=== PATIENT | female | born 1995 | race Caucasian/White ===

== ENCOUNTER → 2019-08-31 | Outpatient (REF) | payer BC ==
[2019-08-31 18:57] LABS: HEMATOCRIT 35.6 % (36.0-47.0); HEMOGLOBIN 11.4 g/dl (12.0-15.5); MEAN CORPUSCULAR VOLUME 84.2 fl (80.0-96.0); PLATELET COUNT, AUTOMATED 180 10^3/uL (150-450); RED BLOOD COUNT 4.23 10^6/uL (4.00-5.40); WHITE BLOOD COUNT 11.3 10^3/uL (4.0-10.0)
== END ==
LOC: M PLALAB 15:16
PROVIDERS: ATTEND Advanced Practice Midwife
DX: Z34.03 Encounter for supervision of normal first pregnancy, third trimester (principal)

== ENCOUNTER 2019-11-09 10:30 | Inpatient (IN) | payer BC, MEDICAID ==
[2019-11-10] MEDS ORDERED: PROMETHAZINE INJ 25 MG/ML VIAL (J2550) As Ordered ONE (00:45)
[2019-11-10] MEDS ORDERED: BUTORPHANOL 2 MG/ML INJ (J0595) As Ordered ONE (00:46)
[2019-11-10] MEDS ORDERED: FENTANYL 2MCG/ML ROPIVACAINE 0.2% IN 0.9% NACL 100ML IVBAG As Ordered ONE ×2 (03:40→12:53)
[2019-11-10] MEDS ORDERED: FENTANYL 2MCG/ML ROPIVACAINE 0.2% IN 0.9% NACL 100ML IVBAG ONE ×2 (03:40→12:53)
[2019-11-10] MEDS ORDERED: miSOPROStol 50 MCG 1/2 TAB (S0191) ONE (05:15)
[2019-11-10] MEDS ORDERED: ePHEDrine SULFATE 25 MG/5 ML(5MG/ML) SYRINGE ONE (05:15)
[2019-11-10] MEDS ORDERED: ePHEDrine SULFATE 25 MG/5 ML(5MG/ML) SYRINGE As Ordered ONE (05:15)
[2019-11-10] MEDS ORDERED: OXYTOCIN 30 UNITS IN 0.9% NaCl 500ML IV BAG (J2590) ONE ×2 (05:15→19:36)
[2019-11-10] MEDS ORDERED: miSOPROStol 50 MCG 1/2 TAB (S0191) As Ordered ONE (05:55)
[2019-11-10] MEDS ORDERED: OXYTOCIN 30 UNITS IN 0.9% NaCl 500ML IV BAG (J2590) As Ordered ONE ×2 (08:37→19:47)
[2019-11-10] MEDS ORDERED: BUTORPHANOL 2 MG/ML INJ (J0595) ONE (12:45)
[2019-11-10] MEDS ORDERED: PROMETHAZINE INJ 25 MG/ML VIAL (J2550) ONE (12:45)
[2019-11-10] MEDS ORDERED: ONDANSETRON 4MG/2ML VIAL ONE (19:36)
[2019-11-10] MEDS ORDERED: METHYLERGONOVINE MALEATE 0.2 MG/ML VIAL (J2210) ONE (19:36)
[2019-11-10] MEDS ORDERED: ACETAMINOPHEN 500 MG TAB ONE (19:36)
[2019-11-10] MEDS ORDERED: ONDANSETRON 4MG/2ML VIAL As Ordered ONE (19:36)
[2019-11-10] MEDS ORDERED: ACETAMINOPHEN 500 MG TAB As Ordered ONE ×2 (21:50→21:51)
[2019-11-10] MEDS ORDERED: METHYLERGONOVINE MALEATE 0.2 MG/ML VIAL (J2210) As Ordered ONE (22:26)
[2019-11-11] MEDS ORDERED: ACETAMINOPHEN 500 MG TAB As Ordered ONE (22:47)
[2019-11-11] MEDS ORDERED: ACETAMINOPHEN 500 MG TAB ONE (22:47)
[2019-11-12] MEDS ORDERED: ACETAMINOPHEN 500 MG TAB ONE (07:52)
[2019-11-12] MEDS ORDERED: ACETAMINOPHEN 500 MG TAB As Ordered ONE (07:52)
[2019-11-12] MEDS ORDERED: PRENATAL VITAMINS CHEWABLE TABLET As Ordered ONE (07:53)
[2019-12-31 15:14] LABS: HEMATOCRIT 31.8 % (36.0-47.0); HEMOGLOBIN 10.3 g/dl (12.0-15.5); MEAN CORPUSCULAR HEMOGLOBIN 26.6 pg (27.0-33.0); MEAN CORPUSCULAR HGB CONC 32.4 g/dl (32.0-36.5); MEAN CORPUSCULAR VOLUME 82.2 fl (80.0-96.0); PLATELET COUNT, AUTOMATED 179 10^3/uL (150-450); RED BLOOD COUNT 3.87 10^6/uL (4.00-5.40); WHITE BLOOD COUNT 15.8 10^3/uL (4.0-10.0)
[2020-02-01 09:51] LABS: HIV 1&2 SCREEN CENTAUR NEGATIVE (NEGATIVE)
== END 2019-11-12 10:37 | disposition home or self-care (01) | DRG 560 ==
LOC: M LDI 10:30 → UNDODISIN 11-12 10:37
PROVIDERS: ADMIT Advanced Practice Midwife; ATTEND Advanced Practice Midwife
PROC: 3E033VJ Introduction of Other Hormone into Peripheral Vein, Percutaneous Approach (ICD-10-PCS; 2019-11-09)
PROC: 10E0XZZ Delivery of Products of Conception, External Approach (ICD-10-PCS; principal; 2019-11-10)
PROC: 0HQ9XZZ Repair Perineum Skin, External Approach (ICD-10-PCS; 2019-11-10)
DX: O48.0 Post-term pregnancy (principal); O77.0 Labor and delivery complicated by meconium in amniotic fluid; Z37.0 Single live birth; Z3A.40 40 weeks gestation of pregnancy; O70.0 First degree perineal laceration during delivery

== ENCOUNTER → 2020-04-27 | Outpatient (REF) | payer OTHER | LOC: M PLALAB 11:10 | PROVIDERS: ATTEND Advanced Practice Midwife | DX: Z12.4 Encounter for screening for malignant neoplasm of cervix (principal) ==

== ENCOUNTER → 2021-04-01 | Outpatient (REF) | payer OTHER ==
[2021-04-01 15:53] LABS: GC DNA AMPLIFICATION NEGATIVE (NEGATIVE)
== END ==
LOC: M SFHCWAGY 13:20
PROVIDERS: ATTEND Advanced Practice Midwife
DX: R10.2 Pelvic and perineal pain (principal); F52.6 Dyspareunia not due to a substance or known physiological condition; N92.1 Excessive and frequent menstruation with irregular cycle

== ENCOUNTER → 2021-04-16 | Outpatient (CLI) | payer OTHER ==
--- NOTE | 2021-04-16 09:18 | REP ---
INDICATION: PELVIC PAIN COMPARISON: None. TECHNIQUE: Transabdominal pelvic ultrasound followed by transvaginal examination for better evaluation of the endometrium and adnexa with color Doppler evaluation of the ovaries. FINDINGS: Bladder is unremarkable and measures 5.4 x 2.3 x 5.5. Normal anteverted uterus measures 6.7 x 4.2 x 3.6 cm. The endometrial complex measures 8.1 mm thickness. Small incidental calcification identified in the cervical region. Bilateral ovaries are normal in appearance and vascularity without evidence for torsion. Right ovary measures 2.4 x 1.7 x 2.7 cm; R I = 0.68. Left ovary measures 3.5 x 2.2 x 3.9 cm and includes 3.0 cm presumed physiologic cyst; R I = 0.76. No pelvic fluid. IMPRESSION: 1. Presumed physiologic left ovarian cyst. If the patient remains symptomatic consider re-evaluation in 4-6 weeks to evaluate for resolution. <Electronically signed by Marin Jones > 04/16/21 0914
== END ==
LOC: M WHC 07:59
PROVIDERS: ATTEND Advanced Practice Midwife
DX: R10.2 Pelvic and perineal pain (principal); F52.6 Dyspareunia not due to a substance or known physiological condition; N83.202 Unspecified ovarian cyst, left side; N85.4 Malposition of uterus

== ENCOUNTER → 2022-09-04 | Outpatient (REF) | LOC: M EMP 10:21 | PROVIDERS: ATTEND Family Medicine | DX: Z11.52 Encounter for screening for COVID-19 (principal) ==

== ENCOUNTER → 2023-02-11 | Outpatient (CLI) | payer OTHER ==
[2023-02-11 19:00] LABS: HEPATITIS B SURFACE ANTIBODY NEGATIVE (POSITIVE)
[2023-02-11 19:25] LABS: HIV 1&2 SCREEN NEGATIVE (NEGATIVE)
[2023-02-13 14:08] LABS: HEPATITIS C QUANTITATION HCV Not Detected IU/mL (.); HSV TYPE I IgG SPECIFIC <0.91 index (0.00-0.90)
== END ==
LOC: M LAB 16:42
PROVIDERS: ATTEND Obstetrics & Gynecology
DX: Z11.3 Encounter for screening for infections with a predominantly sexual mode of transmission (principal)

== ENCOUNTER → 2023-06-01 | Outpatient (REF) | payer OTHER ==
[2023-06-01 11:47] LABS: BASO # 0.1 10^3/uL (0.0-0.2); BASO % 0.8 % (0.0-1.0); EOS # 0.5 10^3/uL (0.0-0.5); EOS % 7.6 % (0.0-3.0); HEMATOCRIT 41.3 % (36.0-47.0); HEMOGLOBIN 13.2 g/dl (12.0-15.5); LYMPH # 2.3 10^3/uL (1.5-5.0); LYMPH % 36.3 % (24.0-44.0); MEAN CORPUSCULAR HEMOGLOBIN 25.8 pg (27.0-33.0); MEAN CORPUSCULAR VOLUME 80.8 fl (80.0-96.0); MONO # 0.5 10^3/uL (0.0-0.8); MONO % 7.8 % (2.0-8.0); NEUTROPHILS % 47.3 % (36.0-66.0); PLATELET COUNT, AUTOMATED 262 10^3/uL (150-450); RED BLOOD COUNT 5.11 10^6/uL (4.00-5.40); WHITE BLOOD COUNT 6.3 10^3/uL (4.0-10.0)
[2023-06-01 12:18] LABS: ALBUMIN 3.9 G/DL (3.2-5.2); ALKALINE PHOSPHATASE 44 U/L (46-116); ALT/SGPT 14 U/L (7.0-40); AST/SGOT 9 U/L (<34); BILIRUBIN,TOTAL 0.9 MG/DL (0.3-1.2); BLOOD UREA NITROGEN 11 MG/DL (9-23); CALCIUM LEVEL 8.7 MG/DL (8.5-10.1); CARBON DIOXIDE LEVEL 27 MMOL/L (20-31); CHLORIDE LEVEL 111 MMOL/L (98-107); CHOLESTEROL LEVEL 142 MG/DL (<200); CHOLESTEROL RISK RATIO 2.84 (<5); CPK CREATINE PHOSPHOKINASE 143 U/L (34-145); CREATININE FOR GFR 0.67 MG/DL (0.55-1.30); FOLATE 17.7 NG/ML (>5.4); GLOMERULAR FILTRATION RATE > 60.0 (>60); GLUCOSE, FASTING 90 MG/DL (60-100); HDL CHOLESTEROL 49.9 MG/DL (>40); LDL CHOLESTEROL 70.1 MG/DL (<100); MAGNESIUM LEVEL 2.1 MG/DL (1.8-2.4); NON-HDL-C 92.1 MG/DL; POTASSIUM SERUM 4.7 MMOL/L (3.5-5.1); SODIUM LEVEL 141 MMOL/L (136-145); TOTAL 25(OH) VITAMIN D 24.8 NG/ML (20.0-100.0); TOTAL PROTEIN 6.7 G/DL (5.7-8.2); TRIGLYCERIDES LEVEL 110 MG/DL (<150)
[2023-06-01 12:19] LABS: THYROID STIMULATING HORMONE 1.466 uIU/ML (0.55-4.78); VITAMIN B12 LEVEL 311 PG/ML (211-911)
[2023-06-01 12:44] LABS: HIV 1&2 SCREEN NEGATIVE (NEGATIVE)
[2023-06-01 12:51] LABS: HEPATITIS C VIRUS ABY INDEX < 0.02 INDEX (<0.8)
== END ==
LOC: M LAB REF 11:08
PROVIDERS: ATTEND Physician Assistant
DX: R25.3 Fasciculation (principal); E66.9 Obesity, unspecified; Z11.9 Encounter for screening for infectious and parasitic diseases, unspecified; R53.83 Other fatigue; E55.9 Vitamin D deficiency, unspecified

== ENCOUNTER → 2023-10-21 | Outpatient (REF) | payer OTHER | LOC: M LAB REF 17:12 | PROVIDERS: ATTEND Physician Assistant | DX: Z02.1 Encounter for pre-employment examination (principal) ==

== ENCOUNTER 2024-06-02 09:39 | Emergency (ER) | payer OTHER ==
[~2024-06-02] VITALS: Ht 157.5 cm; Wt 76.2 kg
[2024-06-02 10:50] LABS: BASO # 0.1 10^3/uL (0.0-0.2); BASO % 0.3 % (0.0-1.0); EOS % 0.2 % (0.0-3.0); HEMATOCRIT 41.5 % (36.0-47.0); HEMOGLOBIN 13.6 g/dl (12.0-15.5); LYMPH # 1.8 10^3/uL (1.5-5.0); LYMPH % 10.4 % (24.0-44.0); MEAN CORPUSCULAR HGB CONC 32.8 g/dl (32.0-36.5); MEAN CORPUSCULAR VOLUME 79.2 fl (80.0-96.0); MONO # 1.1 10^3/uL (0.0-0.8); MONO % 6.1 % (2.0-8.0); NEUTROPHILS # 14.4 10^3/uL (1.5-8.5); NEUTROPHILS % 82.6 % (36.0-66.0); PLATELET COUNT, AUTOMATED 259 10^3/uL (150-450); RED BLOOD COUNT 5.24 10^6/uL (4.00-5.40); WHITE BLOOD COUNT 17.5 10^3/uL (4.0-10.0)
[2024-06-02 11:10] LABS: LIPASE 28 U/L (12-53)
[2024-06-02 11:12] LABS: HCG, SERUM QUALITATIVE NEGATIVE (NEGATIVE)
[2024-06-02 11:13] LABS: ALBUMIN 4.1 G/DL (3.2-5.2); ALKALINE PHOSPHATASE 54 U/L (35-104); ALT/SGPT 16 U/L (7.0-40); AST/SGOT < 8 U/L (<34); BILIRUBIN,DIRECT 0.7 MG/DL (<0.4); BILIRUBIN,TOTAL 3.1 MG/DL (0.3-1.2); BLOOD UREA NITROGEN 10 MG/DL (9-23); CARBON DIOXIDE LEVEL 27 MMOL/L (20-31); CHLORIDE LEVEL 103 MMOL/L (98-107); CREATININE FOR GFR 0.64 MG/DL (0.55-1.30); GLOMERULAR FILTRATION RATE > 60.0 (>60); GLUCOSE, FASTING 89 MG/DL (60-100); POTASSIUM SERUM 4.2 MMOL/L (3.5-5.1); SODIUM LEVEL 139 MMOL/L (136-145); TOTAL PROTEIN 7.3 G/DL (5.7-8.2)
[2024-06-02] MEDS: ONDANSETRON 4MG 2ML VIAL IV ONE (13:05)
[2024-06-02] MEDS: KETOROLAC 30 MG/ML 1ML VIAL IV ONE (13:06)
[2024-06-02] MEDS ORDERED: ISOVUE-370 76% 100ML VIAL As Ordered ONE (13:10)
[2024-06-02 13:52] LABS: KETONE, URINE AUTO RFX 1+ mg/dL (NEGATIVE); MUCUS, URINE RFX MODERATE (NEGATIVE); NITRITE, URINE AUTO RFX NEGATIVE (NEGATIVE); RBC, URINE AUTO RFX 6 /HPF (0-3); SQUAM EPITHELIAL CELL UR AURFX 4 /HPF (0-6); WBC, URINE AUTO RFX 7 /HPF (0-3)
[2024-06-02 13:54] LABS: LEUKOCYTE ESTERASE UR AUTO RFX TRACE (NEGATIVE)
[2024-06-02 14:25] LABS: Trichomonas vaginalis (AMP) NOT DETECTED (NEGATIVE)
[2024-06-02 14:49] LABS: GC DNA AMPLIFICATION NEGATIVE (NEGATIVE)
[2024-06-02] MEDS: cefTRIAXone SOD 1 GM in DEXTROSE 5% (D5W) ADV/MINI-BAG 50 ML IV ONE (15:15)
[2024-06-02] MEDS ORDERED: CEFD1CAP9 PO (15:17)
[2024-06-02] MEDS ORDERED: COLA100C5 PO (15:17)
[2024-06-02] MEDS ORDERED: MIRA3350 PO (15:17)
[2024-06-02 15:31] VITALS: BP 119/67; TEMP 97.9; O2SAT 98
== END 2024-06-02 15:42 | disposition home or self-care (01) ==
LOC: M ED 09:39
DX: N10 Acute pyelonephritis (principal); K59.00 Constipation, unspecified; F12.10 Cannabis abuse, uncomplicated; Z88.2 Allergy status to sulfonamides
CPT/HCPCS: 74177; 76830; 76856; 80048; 80076; 81001; 83690; 84703; 85025; 87086; 87661; 87810; 87850; 93976; 96365; 96375; 99284; J0696; J1885; J2405; Q9967

== ENCOUNTER → 2024-06-10 | Outpatient (REF) | payer OTHER ==
[~2024-06-10] MED LIST: CEFD1CAP9 PO; COLA100C5 PO; MIRA3350 PO
[2024-06-10 18:30] LABS: BASO # 0.1 10^3/uL (0.0-0.2); BASO % 0.6 % (0.0-1.0); EOS # 0.4 10^3/uL (0.0-0.5); EOS % 4.3 % (0.0-3.0); HEMATOCRIT 43.1 % (36.0-47.0); HEMOGLOBIN 13.9 g/dl (12.0-15.5); LYMPH # 2.9 10^3/uL (1.5-5.0); LYMPH % 33.8 % (24.0-44.0); MEAN CORPUSCULAR HEMOGLOBIN 26.3 pg (27.0-33.0); MEAN CORPUSCULAR HGB CONC 32.3 g/dl (32.0-36.5); MEAN CORPUSCULAR VOLUME 81.5 fl (80.0-96.0); MONO # 0.6 10^3/uL (0.0-0.8); MONO % 7.1 % (2.0-8.0); NEUTROPHILS # 4.6 10^3/uL (1.5-8.5); NEUTROPHILS % 53.7 % (36.0-66.0); PLATELET COUNT, AUTOMATED 289 10^3/uL (150-450); RED BLOOD COUNT 5.29 10^6/uL (4.00-5.40); WHITE BLOOD COUNT 8.6 10^3/uL (4.0-10.0)
[2024-06-10 18:37] LABS: FERRITIN 29.1 NG/ML (7.3-270.7)
[2024-06-10 18:38] LABS: TOTAL 25(OH) VITAMIN D 28.7 NG/ML (20.0-100.0)
== END ==
LOC: M LAB REF 16:21
PROVIDERS: ATTEND Physician Assistant
DX: D72.829 Elevated white blood cell count, unspecified (principal); E55.9 Vitamin D deficiency, unspecified; D50.9 Iron deficiency anemia, unspecified

== ENCOUNTER → 2025-02-14 | Outpatient (RCR) | LOC: M EMPSKH 02-09 15:11 | PROVIDERS: ATTEND Family Medicine | DX: Z20.828 Contact with and (suspected) exposure to other viral communicable diseases (principal) ==